=== PATIENT | male | born 1980 | race Caucasian/White ===

== ENCOUNTER → 2021-12-01 11:13 | Outpatient (CLI) | payer OTHER, SELFPAY ==
--- NOTE | 2021-12-01 | DI.CT.S_ITS ---
PROCEDURE: CT SINUS SCREEN WO CON INDICATIONS: Chronic pansinusitis TECHNIQUE: Noncontrast 3.0 mm axial images acquired from the frontal sinuses to the mid-sella, with coronal and sagittal reformats. For radiation dose reduction, the following was used: automated exposure control, adjustment of mA and/or kV according to patient size. COMPARISON: None. FINDINGS: Image quality: Excellent. Maxillary Sinuses: No bony remodeling or destruction. Moderate mucosal thickening is seen within the inferior left maxillary sinus. Ethmoid Air Cells: No bony remodeling or destruction. Sinuses are clear. Sphenoid Sinuses: No bony remodeling or destruction. Sinuses are clear. Frontal Sinuses: No bony remodeling or destruction. Sinuses are clear. Ostiomeatal Complexes: Ostiomeatal complexes are patent, yet they are constitutionally narrowed with Irma cells, left larger than right. Miscellaneous: Visualized intra-orbital contents are normal. No luiza bullosa or paradoxical turbinate curvature. No significant nasal septal deviation. IMPRESSION: Focal left maxillary sinus disease. Constitutionally narrowed ostiomeatal complexes. Dictated by: Bakari Mcneill M.D. on 12/01/2021 at 11:30 Approved by: Bakari Mcneill M.D. on 12/01/2021 at 11:31
== END ==
PROVIDERS: PCP Student in an Organized Health Care Education/Training Program; Referring Provider Otolaryngology; Visit Provider Otolaryngology
DX: J32.4 Chronic pansinusitis (principal); J34.89 Other specified disorders of nose and nasal sinuses; G44.89 Other headache syndrome
CPT/HCPCS: 70486